=== PATIENT | male | born 1955 | race Caucasian/White ===

== ENCOUNTER 2019-03-18 12:39 | Day surgery (SDC) | payer MEDICARE, OTHER ==
[~2019-03-18] VITALS: Ht 188 cm; Wt 135.0 kg
[~2019-03-18 12:39] MED LIST: BUPR150ER PO; BUSP10 PO; CENTRUM SILVER1 EAC2 PO; CLON1 PO; CYCL10 PO; DULO60 PO; Fentanyl1 EACH TOP; GABA600 PO; METHYLPHENIDATE20 M3 PO; METPHE20CR; OXYC10TA19 PO; OXYC30ER PO; PRAM.5 PO; TIZANIDINE HCL4 MG PO; TRAZ150T57 PO; VENL75ER PO
--- NOTE | 2019-03-18 14:33 | NUR ---
03/18/19 1433 Betty Bruno (Jesenia 2.5MG VERSED IVP ADMINISTERED BY DR. PATEL IN PRE-OP AT 1400. 0.2MG ROBINOL IVP ADMINISTERED BY DR. PATEL IN PRE-OP AT 1400. 2.5MG VERSED IVP ADMINISTERED AGAIN BY DR. PATEL ONCE IN PROCEDURE ROOM AT 1406.
--- NOTE | 2019-03-18 16:29 | NUR ---
03/18/19 1629 Betty Bruno DELAYED ENTRY PT MISTAKENLY PULLED IV OUT IN PROCEDURE ROOM AFTER COLONOSCOPY HAD BEEN COMPLETED. IV SITE WITHIN NORMAL LIMITS, NO INFILTRATION, REDDENING, OR SWELLING VISIBLE. EDUCATED PT AND SPOUSE. PT DENIES PAIN OR DISCOMFORT AT SITE.
== END 2019-03-18 15:00 | disposition home or self-care (01) ==
LOC: ORSCSDS 12:39
PROVIDERS: Surgery
PROC: 0DJD8ZZ Inspection of Lower Intestinal Tract, Via Natural or Artificial Opening Endoscopic (ICD-10-PCS; principal; 2019-03-18 13:45)
DX: Z12.11 Encounter for screening for malignant neoplasm of colon (principal); Z86.010 Personal history of colon polyps; G47.33 Obstructive sleep apnea (adult) (pediatric); I10 Essential (primary) hypertension; E66.01 Morbid (severe) obesity due to excess calories; Z68.38 Body mass index [BMI] 38.0-38.9, adult; G25.0 Essential tremor; Z79.899 Other long term (current) drug therapy
CPT/HCPCS: J2250; J2704; J7120

== ENCOUNTER → 2020-10-04 | Outpatient (CLI) | payer OTHER ==
[2020-10-04 15:22] LABS: Source, Urine Clean Catch
[2020-10-04 15:30] LABS: Appearance, Urine Clear (Clear); Bilirubin, Urine Neg (Neg); Blood, Urine Neg (Neg); Color, Urine Yellow (P-Yellow); Glucose Qualitative, Urine Trace (Normal); Ketones, Urine Neg (Neg); Leukocyte Esterase, Urine Neg (Neg); Nitrite, Urine Neg (Neg); Protein, Urine Neg (Neg); Specific Gravity, Urine 1.025 (1.003-1.022); Urobilinogen, Urine NORM (Normal)
[2020-10-04 16:48] LABS: Microalb/Creat Ratio UR, Rand 9.852 mg/g (0.000-30.000); Microalbumin, Random Urine 13.3 mg/L (0.000-20.000)
== END | disposition home or self-care (01) ==
LOC: LAB EV 15:19 → LAB SHORT 15:19
PROVIDERS: Physician Assistant
DX: E11.69 Type 2 diabetes mellitus with other specified complication (principal); R35.0 Frequency of micturition
CPT/HCPCS: 81003; 82043; 82570

== ENCOUNTER 2022-03-28 05:44 | Emergency (ER) | payer OTHER ==
[~2022-03-28] VITALS: Ht 188 cm; Wt 135.6 kg
[2022-03-28] MEDS ORDERED: CETRAXAL1 EACH RIGHTEAR (06:38)
[2022-03-28] MEDS ORDERED: Prednisone20 MG PO (06:38)
== END 2022-03-28 06:45 | disposition home or self-care (01) ==
LOC: ER 05:44
DX: H72.91 Unspecified perforation of tympanic membrane, right ear (principal); F41.9 Anxiety disorder, unspecified; F32.A Depression, unspecified; Z79.899 Other long term (current) drug therapy
CPT/HCPCS: 99282

== ENCOUNTER 2023-01-14 09:34 | Emergency (ER) | payer OTHER ==
[~2023-01-14] VITALS: Ht 188 cm; Wt 136.1 kg
[~2023-01-14 09:34] MED LIST changes: +CETRAXAL1 EACH RIGHTEAR; +Prednisone20 MG PO
[2023-01-14 10:46] LABS: Albumin, Blood 3.5 g/dL (3.4-5.0); Bilirubin, Total 0.8 mg/dL (0.1-1.0); Bun/Creatinine Ratio 23.4 (12.0-20.0); Calcium, Blood 8.6 mg/dL (8.5-10.1); Creatinine, Blood 0.9 mg/dL (0.60-1.20); Globulin, Blood 3.5 g/dL (2.2-4.0); Potassium, Blood 4.8 mmol/L (3.5-5.5)
[2023-01-14 11:47] LABS: BASOPHILS ABSOLUTE AUTO 0.05 K/mm3 (0.00-0.23); BASOPHILS PERCENT AUTO 1 % (0-2); EOSINOPHILS ABSOLUTE AUTO 0.21 K/mm3 (0.00-0.68); EOSINOPHILS PERCENT AUTO 3 % (0-6); Hemoglobin 13.4 g/dL (13.5-17.5); IMMATURE GRAN ABSOLUTE AUTO 0.02 K/mm3 (0.00-0.10); IMMATURE GRAN PERCENT AUTO 0 % (0-1); LYMPHOCYTES ABSOLUTE AUTO 3.06 K/mm3 (0.84-5.20); LYMPHOCYTES PERCENT AUTO 36 % (21-46); MONOCYTES ABSOLUTE AUTO 0.75 K/mm3 (0.16-1.47); MONOCYTES PERCENT AUTO 9 % (4-13); Mean Corpuscular HGB 26.5 pg (26.0-34.0); Mean Corpuscular HGB Conc 31.9 g/dL (31.5-36.5); Mean Corpuscular Volume 83 fL (80-100); Mean Platelet Volume 10.1 fL (9.1-12.4); NEUTROPHILS ABSOLUTE AUTO 4.42 K/mm3 (1.96-9.15); NEUTROPHILS PERCENT AUTO 52 % (41-73); Platelet Count 237 K/mm3 (150-400); RDW Standard Deviation 45.5 fL (35.1-46.3); Red Blood Cell Count 5.06 M/mm3 (4.30-5.90); White Blood Cell Count 8.51 K/mm3 (4.00-11.30)
[2023-01-14 12:00] VITALS: BP 110/70
== END 2023-01-14 12:29 | disposition home or self-care (01) ==
LOC: ER 09:34
PROVIDERS: Emergency Medicine; Physician Assistant
DX: R55 Syncope and collapse (principal); S09.90XA Unspecified injury of head, initial encounter; S16.1XXA Strain of muscle, fascia and tendon at neck level, initial encounter; W18.2XXA Fall in (into) shower or empty bathtub, initial encounter; Z79.899 Other long term (current) drug therapy
CPT/HCPCS: 36415; 70450; 71046; 80053; 84484; 85025; 93005; 93010; 96374; 99284-25; J1815; J1885

== ENCOUNTER 2023-11-05 15:27 | Emergency (ER) | payer OTHER ==
[~2023-11-05] VITALS: Ht 188 cm; Wt 103.0 kg
[2023-11-05 15:41] VITALS: BP 163/94
[2023-11-05] MEDS ORDERED: NS 1,000 ML IV SCH (15:55)
[2023-11-05 16:05] LABS: BASOPHILS ABSOLUTE AUTO 0.03 K/mm3 (0.00-0.23); BASOPHILS PERCENT AUTO 0 % (0-2); EOSINOPHILS ABSOLUTE AUTO 0.12 K/mm3 (0.00-0.68); EOSINOPHILS PERCENT AUTO 2 % (0-6); Hemoglobin 14.6 g/dL (13.5-17.5); IMMATURE GRAN ABSOLUTE AUTO 0.04 K/mm3 (0.00-0.10); IMMATURE GRAN PERCENT AUTO 1 % (0-1); LYMPHOCYTES ABSOLUTE AUTO 2.27 K/mm3 (0.84-5.20); LYMPHOCYTES PERCENT AUTO 28 % (21-46); MONOCYTES ABSOLUTE AUTO 0.65 K/mm3 (0.16-1.47); MONOCYTES PERCENT AUTO 8 % (4-13); Mean Corpuscular HGB 26.4 pg (26.0-34.0); Mean Corpuscular HGB Conc 32.4 g/dL (31.5-36.5); Mean Corpuscular Volume 81 fL (80-100); Mean Platelet Volume 10.5 fL (9.1-12.4); NEUTROPHILS ABSOLUTE AUTO 5.12 K/mm3 (1.96-9.15); NEUTROPHILS PERCENT AUTO 62 % (41-73); Platelet Count 216 K/mm3 (150-400); RDW Coefficient Variation 14.7 % (11.7-14.2); Red Blood Cell Count 5.53 M/mm3 (4.30-5.90); White Blood Cell Count 8.23 K/mm3 (4.00-11.30)
[2023-11-05 16:23] LABS: Source, Urine Clean Catch
[2023-11-05 16:25] LABS: Magnesium, Blood 2.3 mg/dL (1.6-2.4)
[2023-11-05 16:41] LABS: Albumin, Blood 3.8 g/dL (3.4-5.0); Beta-hydroxybutyrate 7.1 mg/dL (0.2-2.8); Bun/Creatinine Ratio 21.8 (12.0-20.0); Calcium, Blood 9.7 mg/dL (8.5-10.1); Creatinine, Blood 0.83 mg/dL (0.60-1.20); Globulin, Blood 3.8 g/dL (2.2-4.0); Potassium, Blood 4.5 mmol/L (3.5-5.5); Total Protein, Blood 7.6 g/dL (6.4-8.2)
[2023-11-05 16:47] LABS: Appearance, Urine Clear (Clear); Bilirubin, Urine Neg (Neg); Blood, Urine 1+ (Neg); Glucose Qualitative, Urine 4+ (Neg); Ketones, Urine 2+ (Neg); Leukocyte Esterase, Urine Neg (Neg); Nitrite, Urine Neg (Neg); Protein, Urine Neg (Neg); Specific Gravity, Urine 1.015 (1.003-1.022); Urobilinogen, Urine NORM (Normal)
[2023-11-05 17:07] LABS: Color, Urine Pale Yellow (P-Yellow)
[2023-11-05 17:08] LABS: Bacteria Few /hpf; Red Blood Cells, Urine 0-2 /hpf (0-2); Squamous Epithelial Cells Rare /hpf (Few); White Blood Cells, Urine 0-2 /hpf (0-5)
== END 2023-11-05 17:33 | disposition home or self-care (01) ==
LOC: ER 15:27
PROVIDERS: Physician Assistant
DX: E11.65 Type 2 diabetes mellitus with hyperglycemia (principal); R35.0 Frequency of micturition; E11.40 Type 2 diabetes mellitus with diabetic neuropathy, unspecified; G89.29 Other chronic pain; F32.A Depression, unspecified; F41.9 Anxiety disorder, unspecified; Z79.899 Other long term (current) drug therapy; Z79.52 Long term (current) use of systemic steroids
CPT/HCPCS: 80053; 81001; 82010; 83735; 84100; 85025; 96360; 99283-25; J7030

== ENCOUNTER → 2023-11-05 | Outpatient (CLI) | payer OTHER | END | disposition home or self-care (01) | LOC: LAB SHORT 23:55 → LAB 23:55 | DX: R30.0 Dysuria (principal) | CPT/HCPCS: 87086 ==

== ENCOUNTER → 2024-08-19 | Outpatient (CLI) | payer OTHER ==
[2024-08-20 14:21] LABS: C DIFFICILE DNA NEGATIVE (Negative)
== END | disposition home or self-care (01) ==
LOC: LAB SHORT 16:00 → LAB 16:00
DX: A06.1 Chronic intestinal amebiasis (principal); R19.7 Diarrhea, unspecified
CPT/HCPCS: 87493